=== PATIENT | female | born 1995 | race Hispanic/Latino ===

== ENCOUNTER 2023-12-09 18:35 | Emergency (ER) | payer SELFPAY ==
[2023-12-09] MEDS ORDERED: ONDANSETRON 4 MG/2 ML VIAL ONE (19:07)
[2023-12-09] MEDS ORDERED: MORPHINE 4 MG/ML SYR ONE (19:07)
[2023-12-09 19:13] LABS: Absolute Basophils 0.1 K/uL (0-0.5); Absolute Eosinophils 0.1 K/uL (0-0.5); Absolute Lymphocytes (CBC) 3.6 K/uL (0.7-4.9); Absolute Monocytes 1.1 K/uL (0.1-1.3); Absolute Neutrophil 6.2 K/uL (1.8-8.0); Basophils % 0.6 % (0-1.3); Eosinophils % 1.2 % (0-4.4); Hematocrit 43.2 % (36.0-45.0); Hemoglobin 14.4 g/dL (12.0-15.0); Lymphocytes % 32.7 % (15.3-44.8); MCH 28.8 pg (27.0-35.0); MCHC 33.3 g/dL (32.0-36.0); MCV 86.7 fL (80-100); MPV 8.5 fL (7.6-11.3); Monocytes % 9.5 % (3.3-12.3); Nucleated Red Blood Cells % 0.2 % (0-0); Platelets 406 thou/uL (152-406); RBC Red Blood Cell Count 4.99 M/uL (3.86-4.86); Red Cell Distribution Width 13.2 % (12.1-15.2)
[2023-12-09 19:23] LABS: Specific Gravity 1.028 (1.005-1.030)
[2023-12-09 19:25] LABS: Specific Gravity 1.028 (1.005-1.030); Urine Bacteria <20 /HPF (<20); Urine Bilirubin NEGATIVE (Negative); Urine Blood Negative (Negative); Urine Clarity Extremely Turbid (Clear); Urine Color Yellow (Yellow); Urine Culture Reflex Order REFLEXED; Urine Glucose NEGATIVE (Negative); Urine Ketones NEGATIVE (Negative); Urine Microscopic Reflex YN ORDER UMIC; Urine Mucus 2+ /HPF (None Seen); Urine Nitrite NEGATIVE (Negative); Urine Protein TRACE (Negative); Urine RBC <5 /HPF (None Seen); Urine Urobilinogen Normal (Normal); Urine WBC >50 /HPF (<5); Urine pH 5.5 (5.0-7.0)
[2023-12-09 19:31] LABS: Albumin 3.5 g/dL (3.4-5.0); Albumin/Globulin Ratio 0.8 (1.1-1.8); Anion Gap 10.1 mEq/L (5.0-15.0); Bilirubin Total 0.4 mg/dL (0.2-1.0); Globulin 4.6 g/dL (2.3-3.5); Potassium 4.1 mEq/L (3.5-5.1); Protein, Total 8.1 g/dL (6.4-8.2)
[2023-12-09] MEDS ORDERED: CEFTRIAXONE 1000 MG/VIAL ONE (19:41)
[2023-12-09] MEDS ORDERED: Levofloxacin 750mg IV 750 MG/150 ML BAG IV ONE (19:41)
[2023-12-09] MEDS ORDERED: KETOROLAC 30 MG/ML INJ ONE (19:41)
[2023-12-09] MEDS ORDERED: NA CHLORIDE 0.9% 1,000 ML ONE (19:42)
--- NOTE | 2023-12-09 20:58 | RAD REPORT ---
EXAM DESCRIPTION: CT - Abdomen Pelvis W Contrast - 12/09/2023 8:06 pm CLINICAL HISTORY: flank/abd pain COMPARISON: No comparisons TECHNIQUE: Thin cut axial CT imaging of the abdomen and pelvis was performed following intravenous a dministration of iodinated contrast. Multiplanar reformats were generated and reviewed. All CT scans are performed using dose optimization technique as appropriate and may include automated exposure control or mA/KV adjustment according to patient size. FINDINGS: No suspicious findings in the lung bases. The liver, spleen, adrenal glands, and pancreas show no suspicious findings. Gallbladder and biliary tree are also without suspicious finding. Symmetric renal function is seen with no hydronephrosis or suspicious renal mass. No dilated bowel loops or bowel wall thickening. No free air, free fluid or inflammatory stranding. N o hernia, mass or bulky lymphadenopathy. The urinary bladder is decompressed limiting evaluation. No suspicious bony findings. IMPRESSION: No acute intra-abdominal process.
--- NOTE | 2023-12-09 21:16 | ER ---
Nurse's Notes [facility] Name: Enzo Wilde Age: 28 yrs Sex: Female : 1995 Arrival Date: 12/09/2023 Time: 18:35 Bed 7 Private MD: Diagnosis: UTI/ Urinary tract infection, site not specified;Abdominal tenderness;Unspecified symptoms and signs involving the musculoskeletal system Presentation: 12/08 18:42 Chief complaint: Patient states: lower back pain and the pain moves to her abdomen and iw I've been working out on the elliptical , she went to urgent care today and they were worried about a kidney stone or her appendix and was told to come to ER for evaluation. Coronavirus screen: At this time, the client does not indicate any symptoms associated with coronavirus-19. Ebola Screen: Patient negative for fever greater than or equal to 101.5 degrees Fahrenheit, and additional compatible Ebola Virus Disease symptoms Patient denies exposure to infectious person. Patient denies travel to an Ebola-affected area in the 21 days before illness onset. No symptoms or risks identified at this time. Initial Sepsis Screen: Does the patient meet any 2 criteria? No. Patient's initial sepsis screen is negative. Does the patient have a suspected source of infection? No. Patient's initial sepsis screen is negative. Risk Assessment: Do you want to hurt yourself or someone else? Patient reports no desire to harm self or others. Onset of symptoms was December 07, 2023. 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 - Infectious Disease History:: Denies. - Social history:: Smoking status: Patient denies any tobacco usage or history of. - Family history:: not pertinent. Screenin:[facility] ED Fall Risk Assessment (Adult) History of falling in the last 3 months, as6 including since admission No falls in past 3 months (0 pts) Confusion or Disorientation No (0 pts) Intoxicated or Sedated No (0 pts) Impaired Gait No (0 pts) Mobility Assist Device Used No (0 pt) Altered Elimination No (0 pt) Score/Fall Risk Level 0 - 2 = Low Risk Oriented to surroundings, Maintained a safe environment, Educated pt \T\ family on fall prevention, incl call for assistance when getting out of bed, Assessed \T\ reinforced patient's understanding of fall precautions. Abuse screen: Denies threats or abuse. Denies injuries from another. Nutritional screening: No deficits noted. Tuberculosis screening: No symptoms or risk factors identified. Assessment: 19:06 General: Appears in no apparent distress. Behavior is calm, cooperative. Pain: as6 Complains of pain in right upper quadrant and right lower quadrant Pain radiates to back. Neuro: Level of Consciousness is awake, alert, obeys commands, Oriented to person, place, time, situation. Cardiovascular: Capillary refill < 3 seconds Patient's skin is warm and dry. Respiratory: Respiratory effort is even, unlabored, Respiratory pattern is regular, symmetrical. GI: Reports lower abdominal pain, upper abdominal pain, Patient currently denies nausea, vomiting. : No deficits noted. No signs and/or symptoms were reported regarding the genitourinary system. EENT: No deficits noted. No signs and/or symptoms were reported regarding the EENT system. Derm: Skin is intact, is healthy with good turgor. Musculoskeletal: Circulation, motion, and sensation intact. 20:15 Reassessment: Patient and/or family updated on plan of care and expected duration. Pain tm6 level reassessed. Patient is alert, oriented x 3, equal unlabored respirations, skin warm/dry/pink. 21:09 Reassessment: Patient and/or family updated on plan of care and expected duration. Pain tm6 level reassessed. Patient is alert, oriented x 3, equal unlabored respirations, skin warm/dry/pink. Patient states symptoms have not improved. Vital Signs: 18:42 BP 121 / 86; Pulse 100; Resp 18; Pulse Ox 99% on R/A; Weight 132.9 kg; Height 5 ft. 10 iw in. ; Pain 10/10; 20:14 BP 102 / 70; Pulse 76; Pulse Ox 97% on R/A; Pain 5/10; tm6 21:08 BP 100 / 67; Pulse 67; Pulse Ox 99% on R/A; tm6 21:09 Pain 8/10; tm6 18:42 Body Mass Index 42.04 (132.90 kg, 177.8 cm) iw 18:42 Pain Scale: Adult iw 20:14 Pain Scale: Adult tm6 21:09 Pain Scale: Adult tm6 ED Course: 18:37 Patient arrived in ED. mr 18:39 Rajeev Ruelas MD is Attending Physician. rt 18:44 Triage completed. iw 18:45 Arm band placed on. iw 18:47 Willie Bee, AQUILINO is Primary Nurse. as6 19:04 CBC with Diff Sent. as6 19:04 CMP Sent. as6 19:05 Lipase Sent. as6 19:05 Test, Urine Sent. as6 19:05 Urinalysis w/ reflexes Sent. as6 19:05 Inserted saline lock: 20 gauge in right antecubital area, using aseptic technique. as6 Blood collected. 19:06 Bed in low position. Call light in reach. as6 19:19 Attending Physician role handed off by Rajeev Ruelas MD [facility] 19:19 Carlos Salinas MD is Attending Physician. [place] 20:07 CT Abd/Pelvis - IV Contrast Only In Process Unspecified. EDMS 21:23 Provided Education on: follow up, rx teaching . as6 21:23 No provider procedures requiring assistance completed. as6 21:39 IV discontinued, intact, bleeding controlled, No redness/swelling at site. Pressure as6 dressing applied. Administered Medications: 19:21 Drug: Ondansetron IVP 4 mg IVP once; over 2 minutes Route: IVP; Site: right antecubital;tm6 21:28 Follow up: Response: No adverse reaction as6 19:21 Drug: morphine IVP or IV 4 mg IVP once over 4 mins Route: IVP; Infused Over: 4 mins; tm6 Site: right antecubital; 21:28 Follow up: Response: No adverse reaction as6 19:48 Drug: Rocephin IV 1 grams IV at per protocol once; Given slow IV push per pharmacy as6 instructions Route: IV; Rate: per protocol; Site: right antecubital; 21:28 Follow up: Response: No adverse reaction; IV Status: Completed infusion; IV Intake: [id number] 19:48 Drug: NS 0.9% IV 1000 ml IV at 1 bolus Per protocol; 1000 mL bolus Route: IV; Rate: 1 as6 bolus; Site: right antecubital; 21:29 Follow up: Response: No adverse reaction; IV Status: Completed infusion; IV Intake: as6 1000ml 19:48 Drug: levofloxacin IVPB 750 mg 150 ml IVPB once over 90 mins Volume: 150 ml; Route: as6 IVPB; Infused Over: 90 mins; Site: right antecubital; 21:29 Follow up: Response: No adverse reaction; IV Status: Completed infusion; IV Intake: as6 150ml 19:48 Drug: Ketorolac IVP 30 mg IVP once Route: IVP; Site: right antecubital; as6 21:27 Follow up: Response: No adverse reaction as6 Medication: 18:49 VIS not applicable for this client. as6 Intake: 21:28 IV: 10ml; Total: 10ml. as6 21:29 IV: 1000ml; Total: 1010ml. as6 21:29 IV: 150ml; Total: 1160ml. as6 Outcome: 21:15 Discharge ordered by . [place] 21:23 Discharged to home ambulatory, as6 21:23 Condition: stable 21:23 Discharge instructions given to patient, Instructed on discharge instructions, follow up and referral plans. medication usage, Demonstrated understanding of instructions, follow-up care, medications, Prescriptions given X 3, 21:39 Patient left the ED. as6 Signatures: Dispatcher [employer] EDMS Carlos Salinas MD MD cha Rivera, Mary, Reg Reg mr Earline Mullins, AQUILINO ROLLE iw Willie Bee RN RN as6 Rajeev Ruelas MD MD rt Masterson, Tawney, RN RN tm6
--- NOTE | 2023-12-09 21:16 | EDPHYS ---
Physician Documentation [facility] Name: Enzo Wilde Age: 28 yrs Sex: Female : 1995 Arrival Date: 12/09/2023 Time: 18:35 Bed 7 Private MD: ED Physician Carlos Salinas HPI: 12/08 19:16 This 28 yrs old Female presents to ER via Ambulatory with complaints of rt Abdominal Pain, Back Pain. 19:16 Patient presents to the ED with about 3 days of right flank pain to right lower rt quadrant. Worse when she lies down flat. Pain not otherwise radiating. Did worsen today. Went to urgent care, told to come for rule out kidney stone versus appendicitis. Denies other acute complaints, symptoms are moderate severity, no other aggravating alleviating factors.. 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 - Infectious Disease History:: Denies. - Social history:: Smoking status: Patient denies any tobacco usage or history of. - Family history:: not pertinent. ROS: 19:16 Constitutional: Negative for fever, chills, and weight loss, Cardiovascular: Negative rt for chest pain, palpitations, and edema, Respiratory: Negative for shortness of breath, cough, wheezing, and pleuritic chest pain, MS/Extremity: Negative for injury and deformity, Skin: Negative for injury, rash, and discoloration, Neuro: Negative for headache, weakness, numbness, tingling, and seizure, Psych: Negative for depression, anxiety, suicide ideation, homicidal ideation, and hallucinations, 19:16 Abdomen/GI: Positive for abdominal pain, Negative for nausea and vomiting, 19:16 Back: Positive for pain at rest, flank pain, Exam: 19:16 Constitutional: This is a well developed, well nourished patient who is awake, alert, rt and in no acute distress. Head/Face: Normocephalic, atraumatic. Chest/axilla: Normal chest wall appearance and motion. Nontender with no deformity. No lesions are appreciated. Cardiovascular: Regular rate and rhythm with a normal S1 and S2. No gallops, murmurs, or rubs. Normal PMI, no JVD. No pulse deficits. Respiratory: Lungs have equal breath sounds bilaterally, clear to auscultation and percussion. No rales, rhonchi or wheezes noted. No increased work of breathing, no retractions or nasal flaring. Skin: Warm, dry with normal turgor. Normal color with no rashes, no lesions, and no evidence of cellulitis. MS/ Extremity: Pulses equal, no cyanosis. Neurovascular intact. Full, normal range of motion. Neuro: Awake and alert, GCS 15, oriented to person, place, time, and situation. Cranial nerves II-XII grossly intact. Motor strength 5/5 in all extremities. Sensory grossly intact. Cerebellar exam normal. Normal gait. Psych: Awake, alert, with orientation to person, place and time. Behavior, mood, and affect are within normal limits. 19:16 Abdomen/GI: Right lower quadrant tenderness without rebound, guarding, distention, 19:16 Back: Mild right CVAT, no midline tenderness, Vital Signs: 18:42 BP 121 / 86; Pulse 100; Resp 18; Pulse Ox 99% on R/A; Weight 132.9 kg; Height 5 ft. 10 iw in. ; Pain 10/10; 20:14 BP 102 / 70; Pulse 76; Pulse Ox 97% on R/A; Pain 5/10; tm6 21:08 BP 100 / 67; Pulse 67; Pulse Ox 99% on R/A; tm6 21:09 Pain 8/10; tm6 18:42 Body Mass Index 42.04 (132.90 kg, 177.8 cm) iw 18:42 Pain Scale: Adult iw 20:14 Pain Scale: Adult tm6 21:09 Pain Scale: Adult tm6 MDM: 18:49 Patient medically screened. rt 19:20 Patient medically screened. [place] 21:03 Differential diagnosis: chronic back pain, Hydronephrosis Obesity Ureterolithiasis. [place] Data reviewed: vital signs, nurses notes, lab test result(s), radiologic studies, CT scan. Consideration of Admission/Observation Escalation of care including admission/observation considered. I considered the following discharge prescriptions or medication management in the emergency department Medications were administered in the Emergency Department. See MAR. Test considered but Not performed: Ultrasound no abd usg. Historians other than the Patient: Friend: friend , well informed. Care significantly affected by the following chronic conditions: Obesity, gerd , asthma. 12/08 18:56 Order name: CBC with Diff; Complete Time: 19:30 rt 12/08 18:56 Order name: CMP; Complete Time: 20:05 rt 12/08 18:56 Order name: Lipase; Complete Time: 20:05 rt 12/08 18:56 Order name: Test, Urine; Complete Time: 19:30 rt 12/08 18:56 Order name: Urinalysis w/ reflexes; Complete Time: 19:30 rt 12/08 19:30 Order name: Urine Culture EDMS 12/08 18:56 Order name: CT Abd/Pelvis - IV Contrast Only; Complete Time: 21:03 rt 12/08 18:56 Order name: IV Saline Lock; Complete Time: 19:04 rt 12/08 18:56 Order name: Labs collected and sent; Complete Time: 19:04 rt Administered Medications: 19:21 Drug: Ondansetron IVP 4 mg IVP once; over 2 minutes Route: IVP; Site: right antecubital;tm6 21:28 Follow up: Response: No adverse reaction as6 19:21 Drug: morphine IVP or IV 4 mg IVP once over 4 mins Route: IVP; Infused Over: 4 mins; tm6 Site: right antecubital; 21:28 Follow up: Response: No adverse reaction as6 19:48 Drug: Rocephin IV 1 grams IV at per protocol once; Given slow IV push per pharmacy as6 instructions Route: IV; Rate: per protocol; Site: right antecubital; 21:28 Follow up: Response: No adverse reaction; IV Status: Completed infusion; IV Intake: [id number] 19:48 Drug: NS 0.9% IV 1000 ml IV at 1 bolus Per protocol; 1000 mL bolus Route: IV; Rate: 1 as6 bolus; Site: right antecubital; 21:29 Follow up: Response: No adverse reaction; IV Status: Completed infusion; IV Intake: as6 1000ml 19:48 Drug: levofloxacin IVPB 750 mg 150 ml IVPB once over 90 mins Volume: 150 ml; Route: as6 IVPB; Infused Over: 90 mins; Site: right antecubital; 21:29 Follow up: Response: No adverse reaction; IV Status: Completed infusion; IV Intake: as6 150ml 19:48 Drug: Ketorolac IVP 30 mg IVP once Route: IVP; Site: right antecubital; as6 21:27 Follow up: Response: No adverse reaction as6 Disposition Summary: 12/09/23 21:15 Discharge Ordered Notes: Location: Home [place] Problem: new [place] Symptoms: have improved [place] Condition: Stable [place] Diagnosis - UTI/ Urinary tract infection, site not specified [place] - Abdominal tenderness [place] - Unspecified symptoms and signs involving the musculoskeletal system [place] Followup: [place] - With: Private Physician - When: 2 - 3 days - Reason: Recheck today's complaints, Continuance of care, Re-evaluation by your physician Discharge Instructions: - Discharge Summary Sheet [place] - Abdominal Pain, Adult [place] - Dysuria [place] - Urinary Tract Infection, Adult [place] - Urinary Tract Infection, Adult, [id number] [place] - Abdominal Pain, Adult, [id number] [place] Forms: - Medication Reconciliation Form [place] - Antibiotic Education [place] - Prescription Opioid Use [place] - Patient Portal Instructions [place] - Leadership Thank You Letter [facility] Prescriptions: - ondansetron 4 mg Oral Tablet,disintegrating - take 1 tablet ORAL route every 8 hours for 5 days prn nausea and vomiting; 20 [place] tablet; Refills: 0, Product Selection Permitted - Ibuprofen 600 mg Oral Tablet - take 1 tablet ORAL route every 6 hours As needed take with food; 30 tablet; [place] Refills: 0, Product Selection Permitted - levofloxacin 500 mg Oral tablet - take 1 tablet ORAL route once daily for 7 days; 7 tablet; Refills: 0, Product [facility] Selection Permitted Signatures: Dispatcher [employer] Carlos Hankins MD MD cha Williams, Irene, RN RN iw Slawson, Ashby, RN RN as6 Rajeev Ruelas MD MD rt Masterson, Tawney RN RN tm6 Corrections: (The following items were deleted from the chart) 18:56 18:56 Abdomen Pelvis W Con+CT.RAD.BRZ ordered. EDMT EDMS
[2023-12-09 22:40] VITALS: BP 100/67; O2SAT 99
== END 2023-12-09 21:39 | disposition home or self-care (01) ==
LOC: ER 18:35
DX: N39.0 Urinary tract infection, site not specified (principal); R29.91 Unspecified symptoms and signs involving the musculoskeletal system
CPT/HCPCS: 36415; 74177; 80053; 81001; 81025; 83690; 85025; 87086; 87088; J0696; J2405; J7030; Q9967